=== PATIENT | female | born 1930 | race Caucasian/White ===

== ENCOUNTER → 2017-09-02 | Outpatient (CLI) | payer MEDICARE, BC ==
[~2017-09-02] MED LIST: ASPIRIN81 MG PO; CELEXA10 MG PO; CRESTOR40 MG PO; METHIMAZOLE10 MG PO; METHIMAZOLE5 MG PO; MULTI-VITAMIN1 EACH PO; SEROQUEL25 MG PO; SUCRALFATE1 G/10 ML NG; ULTRACET TABLE1 EACH PO; XARELTO10 MG PO
--- NOTE | 2017-09-02 11:57 | Diagnostic Imaging Report ---
Right knee MRI without contrast. History: Knee pain. Meniscus tear. Decreased range of motion. Comparison: None. Technique: Multiplanar multi-sequence MRI of the knee without contrast. Findings: Medial compartment: There is an obliquely oriented tear at the posterior horn of the medial meniscus best seen on series 3 image 13. There is advanced full-thickness articular cartilage loss in the medial compartment with underlying bone marrow edema. There are peripheral marginal osteophytes. The medial collateral ligament complex is intact. Lateral compartment: There is degeneration and fraying of the lateral meniscus. The lateral compartmental articular cartilage surfaces are thinned with regions of fraying and fissuring. There are peripheral marginal osteophytes. The lateral collateral ligament complex is intact. Intercondylar notch: There is degeneration and scarring of the anterior cruciate ligament. The ACL and PCL are otherwise intact. Patellofemoral compartment: There are regions of full-thickness articular cartilage loss in the patellofemoral compartment with mild underlying bone marrow edema. Extensor mechanism: The quadriceps and patellar tendons are normal. Other findings: There is a joint effusion and synovitis. There is no acute fracture, subluxation or avascular necrosis. There is a lobulated septated Pineda's cyst. 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 Regions of full-thickness articular cartilage loss in the patellofemoral compartment with mild underlying bone marrow edema. Mild degenerative arthrosis in the lateral compartment of the knee. Joint effusion, synovitis and lobulated septated Pineda's cyst. Signed by: Dr. Bradley Duran M.D. on 09/02/2017 11:53 AM
== END ==
LOC: MRI 10:12
PROVIDERS: ATTEND Specialist
DX: S83.241A Other tear of medial meniscus, current injury, right knee, initial encounter (principal)